=== PATIENT | male | born 1975 | race Caucasian/White ===

== ENCOUNTER 2017-03-26 18:59 | Emergency (ER) | payer SELFPAY ==
[2017-03-26 19:06] VITALS: BP 187/115; PULSE 75; RESP 18; TEMP 97.9; O2SAT 98
[2017-03-26 19:18] VITALS: BP 121/80; PULSE 70; RESP 18; TEMP 97.7; O2SAT 97
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
[2017-03-27] MEDS ORDERED: TETANUS/DIPHTHERIA TOXOID ADULT 0.5 ML VIAL IM ONE (01:15)
--- NOTE | 2017-03-27 02:08 | RADRPT ---
EXAM DATE/TIME: 03/27/2017 01:47 [facility] COMPARISON: CT FACIAL BONES W/O CONTRAST, March 27, 2017, 1:48. INDICATIONS : Fall, head pain RADIATION DOSE: 56.35 CTDIvol (mGy) MEDICAL HISTORY : None SURGICAL HISTORY : None. ENCOUNTER: Initial ACUITY: 1 day PAIN SCALE: 0/10 LOCATION: cranial TECHNIQUE: Multiple contiguous axial images were obtained of the head. Using automated exposure control and adj ustment of the mA and/or kV according to patient size, radiation dose was kept as low as reasonably a chievable to obtain optimal diagnostic quality images. DICOM format image data is available electro nically for review and comparison. FINDINGS: CEREBRUM: The ventricles are normal for age. No evidence of midline shift, mass lesion, hemorrhage or acute in farction. No extra-axial fluid collections are seen. POSTERIOR FOSSA: The cerebellum and brainstem are intact. The 4th ventricle is midline. The cerebellopontine angle i s unremarkable. EXTRACRANIAL: The visualized portion of the orbits is intact. SKULL: The calvaria is intact. No evidence of skull fracture. CONCLUSION: Normal examination. Magdy Ramirez MD on March 27, 2017 at 2:06 Board Certified Radiologist. This report was verified electronically.
--- NOTE | 2017-03-27 02:09 | RADRPT ---
EXAM DATE/TIME: 03/27/2017 01:48 [facility] COMPARISON: CT BRAIN W/O CONTRAST, March 27, 2017, 1:47. INDICATIONS : Fall . Abrasion to the nose . RADIATION DOSE: 14.59 CTDIvol (mGy) MEDICAL HISTORY : None SURGICAL HISTORY : None. ENCOUNTER: Initial ACUITY: 1 day PAIN SCORE: 0/10 LOCATION: facial TECHNIQUE: Volumetric scanning of the facial bones was performed. Using automated exposure control and adjustme nt of the mA and/or kV according to patient size, radiation dose was kept as low as reasonably achiev able to obtain optimal diagnostic quality images. DICOM format image data is available electronicClearView™ Audio y for review and comparison. FINDINGS: ORBITS: The orbital and infraorbital osseous structures are intact. The retroconal structures have a normal configuration. No radiopaque foreign bodies are seen. NASAL BONE: The nasal bone and maxillary spine are intact ZYGOMATIC ARCHES: Symmetric without evidence of fracture. SINUSES: The maxillary, ethmoid and frontal sinuses are intact. No air-fluid levels seen. NASAL CAVITY: The nasal septum is intact and midline. The lacrimal ducts are intact. SOFT TISSUES: No radiopaque foreign bodies seen. No soft-tissue swelling is seen. INTRACRANIAL: No intracranial air seen. CRIBIFORM PLATE: Grossly intact. CONCLUSION: No acute disease. Magdy Ramirez MD on March 27, 2017 at 2:07 Board Certified Radiologist. This report was verified electronically.
== END 2017-03-27 02:20 | disposition home or self-care (01) ==
LOC: NEDAMB 18:59 → NEPE 03-27 02:20
DX: S09.90XA Unspecified injury of head, initial encounter (principal); S00.31XA Abrasion of nose, initial encounter; S00.81XA Abrasion of other part of head, initial encounter; F10.929 Alcohol use, unspecified with intoxication, unspecified; Z23 Encounter for immunization; Z72.0 Tobacco use; W19.XXXA Unspecified fall, initial encounter
CPT/HCPCS: 70450; 70486; 90471; 90714

== ENCOUNTER 2017-05-07 09:49 | Emergency (ER) | payer SELFPAY ==
[~2017-05-07] VITALS: Ht 165.1 cm; Wt 61.5 kg
[2017-05-07 09:50] VITALS: BP 129/94; PULSE 82; RESP 18; TEMP 98.5; O2SAT 98
--- NOTE | 2017-05-07 10:14 | PD ---
HPI Chief Complaint: Abdominal Pain Time Seen by Provider: 10:04 Travel History International Travel<30 days: No Contact w/Intl Traveler<30days: No Traveled to known affect area: No History of Present Illness HPI Patient has a 41-year-old male with a history of alcoholism presents emergency department with epigastric abdominal pain since this morning. He states his last drink as last night. States he usually drinks 1/5 of alcohol every day. He states he did quit for a long time but then a close friend in so he picked up the bottle again. Endorses some nausea vomiting with some blood- tinged emesis. States that this visit only at the end of his episode of emesis. He states that after the episode of emesis he coughs up the phlegm of mucus that a buildup in his throat in that is when he notices the blood per. Also endorses some nonbloody nonbilious diarrhea, states the pain as epigastric , severe, context associated signs symptoms as above. PFSH Social History Alcohol Use: Yes Tobacco Use: Yes Substance Use: No Allergies-Medications (Allergen,Severity, Reaction): Coded Allergies: tramadol (Verified Allergy, Unknown, 03/27/17) Reported Meds & Prescriptions Reported Meds & Active Scripts Active Zofran (Ondansetron HCl) 4 Mg Tab 4 Mg PO Q6HR PRN Review of Systems Except as stated in HPI: all other systems reviewed are Neg Physical Exam Narrative GENERAL: Well-developed well-nourished, uncomfortable appearance nontoxic though. SKIN: Focused skin assessment warm/dry. HEAD: Atraumatic. Normocephalic. EYES: Pupils equal and round. No scleral icterus. No injection or drainage. ENT: No nasal bleeding or discharge. Mucous membranes pink and moist. NECK: Trachea midline. No JVD. CARDIOVASCULAR: Regular rate and rhythm. No murmur appreciated. RESPIRATORY: No accessory muscle use. Clear to auscultation. Breath sounds equal bilaterally. GASTROINTESTINAL: Abdomen soft, moderately tender in the epigastric area without any rebound or percussive tenderness. Nondistended. Hepatic and splenic margins not palpable. MUSCULOSKELETAL: No obvious deformities. No clubbing. No cyanosis. No edema. NEUROLOGICAL: Awake and alert. No obvious cranial nerve deficits. Motor grossly within normal limits. Normal speech. PSYCHIATRIC: Appropriate mood and affect; insight and judgment normal. Data Data Last Documented VS Vital Signs Date Time Temp Pulse Resp B/P (MAP) Pulse Ox O2 Delivery O2 Flow Rate FiO2 05/07/17 12:27 05/07/17 10:26 18 05/07/17 09:50 98.5 82 98 Room Air Orders Orders Complete Blood Count With Diff (05/07/17 10:05) Comprehensive Metabolic Panel (05/07/17 10:05) Lipase (05/07/17 10:05) Iv Access Insert/Monitor (05/07/17 10:05) Ecg Monitoring (05/07/17 10:05) Oximetry (05/07/17 10:05) Sodium Chloride 0.9% Flush (Ns Flush) (05/07/17 10:15) Electrocardiogram (05/07/17 10:05) Ketorolac Inj (Toradol Inj) (05/07/17 10:15) Chest, Single Ap (05/07/17 ) Ondansetron Inj (Zofran Inj) (05/07/17 10:15) Ed Discharge Order (05/07/17 12:23) Labs Laboratory Tests Test 05/07/17 10:19 White Blood Count 6.9 TH/MM3 Red Blood Count 4.40 MIL/MM3 Hemoglobin 16.2 GM/DL Hematocrit 45.4 % Mean Corpuscular Volume 103.1 FL Mean Corpuscular Hemoglobin 36.8 PG Mean Corpuscular Hemoglobin Concent 35.7 % Red Cell Distribution Width 14.6 % Platelet Count 221 TH/MM3 Mean Platelet Volume 9.5 FL Neutrophils (%) (Auto) 68.5 % Lymphocytes (%) (Auto) 25.4 % Monocytes (%) (Auto) 4.4 % Eosinophils (%) (Auto) 1.3 % Basophils (%) (Auto) 0.4 % Neutrophils # (Auto) 4.8 TH/MM3 Lymphocytes # (Auto) 1.8 TH/MM3 Monocytes # (Auto) 0.3 TH/MM3 Eosinophils # (Auto) 0.1 TH/MM3 Basophils # (Auto) 0.0 TH/MM3 CBC Comment DIFF FINAL Differential Comment Blood Urea Nitrogen 6 MG/DL Creatinine 0.93 MG/DL Random Glucose 100 MG/DL Total Protein 7.7 GM/DL Albumin 3.9 GM/DL Calcium Level 8.4 MG/DL Alkaline Phosphatase 119 U/L Aspartate Amino Transf (AST/SGOT) 162 U/L Alanine Aminotransferase (ALT/SGPT) 62 U/L Total Bilirubin 0.8 MG/DL Sodium Level 136 MEQ/L Potassium Level 4.8 MEQ/L Chloride Level 103 MEQ/L Carbon Dioxide Level 24.0 MEQ/L Anion Gap 9 MEQ/L Estimat Glomerular Filtration Rate 89 ML/MIN Lipase 426 U/L MDM Medical Decision Making Medical Screen Exam Complete: Yes Emergency Medical Condition: Yes Differential Diagnosis Pancreatitis, cholecystitis, alcoholic gastritis, alcoholism. Narrative Course Patient roomed in the emergency department, lipase only minimally elevated, given fluids pain medication and antiemetics, feeling better he has tolerated by mouth fluids in the emergency department, on revisit discussed need follow- up with primary care physician or the [facility] as well as [facility] for treatment of his alcoholism. Patient states he has been having shakes, examined him he has a course intention tremor but no baseline tremor, no delirium, no fever. Symptoms could represent a mild withdrawal but there is no indication for further treatment at this time. He is stable for discharge, discussed return to ED criteria. Diagnosis Primary Impression: Epigastric pain Additional Impression: Alcoholism Referrals: [facility]Other Pt SpecificInfo: Prescription(s) given Scripts Ondansetron (Zofran) 4 Mg Tab 4 MG PO Q6HR Y for NAUSEA OR VOMITING, #20 TAB 0 Refills Prov: Daquan Fountain MD 05/07/17 Disposition: 01 DISCHARGE HOME Condition: Stable Daquan Fountain MD May 07, 2017 10:14
[2017-05-07] MEDS ORDERED: SODIUM CHLORIDE 0.9% FLUSH 10 ML FLUSH IV FLUSH PRN (10:15)
[2017-05-07] MEDS ORDERED: ONDANSETRON HCL 4 MG/2 ML VIAL IV PUSH ONE (10:15)
[2017-05-07] MEDS ORDERED: KETOROLAC TROMETHAMINE 30 MG/ML (IVP) VIAL IV PUSH ONE (10:15)
[2017-05-07 10:42] LABS: AUTOMATED NEUTROPHIL # 4.8 TH/MM3 (1.8-7.7); BASOPHIL % 0.4 % (0.0-2.0); EOSINOPHIL # 0.1 TH/MM3 (0-0.4); EOSINOPHIL % 1.3 % (0.0-4.0); HEMATOCRIT 45.4 % (39.0-51.0); HEMOGLOBIN 16.2 GM/DL (13.0-17.0); LYMPH % 25.4 % (9.0-44.0); LYMPHOCYTE # 1.8 TH/MM3 (1.0-4.8); MEAN CELL VOLUME 103.1 FL (80.0-100.0); MEAN CORPUSCULAR HEMOGLOBIN 36.8 PG (27.0-34.0); MEAN CORPUSCULAR HGB CONC 35.7 % (32.0-36.0); MEAN PLATELET VOLUME 9.5 FL (7.0-11.0); MONO % 4.4 % (0.0-8.0); MONOCYTE # 0.3 TH/MM3 (0-0.9); NEUT % 68.5 % (16.0-70.0); PLATELET COUNT 221 TH/MM3 (150-450); RED CELL DISTRIBUTION WIDTH 14.6 % (11.6-17.2); WHITE BLOOD COUNT 6.9 TH/MM3 (4.0-11.0)
--- NOTE | 2017-05-07 10:48 | RADRPT ---
EXAM DATE/TIME: 05/07/2017 10:24 [facility] COMPARISON: No previous studies available for comparison. INDICATIONS : Dizziness and vomiting. MEDICAL HISTORY : None. SURGICAL HISTORY : None. ENCOUNTER: Initial ACUITY: 1 day PAIN SCORE: 4/10 LOCATION: Bilateral chest FINDINGS: A single view of the chest demonstrates the lungs to be symmetrically aerated without evidence of mas s, infiltrate or effusion. The cardiomediastinal contours are unremarkable. Osseous structures are intact. CONCLUSION: Normal examination. Daniel Burden MD on May 07, 2017 at 10:46 Board Certified Radiologist. This report was verified electronically.
[2017-05-07 10:55] LABS: ALBUMIN 3.9 GM/DL (3.4-5.0); AST (GOT) 162 U/L (15-37); BLOOD UREA NITROGEN 6 MG/DL (7-18); CALCIUM 8.4 MG/DL (8.5-10.1); CHLORIDE 103 MEQ/L (98-107); CREATININE 0.93 MG/DL (0.60-1.30); GLOMERULAR FILTRATION RATE 89 ML/MIN (>89); GLUCOSE,RANDOM 100 MG/DL (74-106); LIPASE 426 U/L (73-393); SODIUM (NA) 136 MEQ/L (136-145)
[2017-05-07 10:56] LABS: ALT (GPT) 62 U/L (12-78)
[2017-05-07 10:58] LABS: ALKALINE PHOSPHATASE 119 U/L (45-117); TOTAL BILIRUBIN ADULT 0.8 MG/DL (0.2-1.0); TOTAL PROTEIN 7.7 GM/DL (6.4-8.2)
[2017-05-07] MEDS ORDERED: ZOFR4TAB PO (12:29)
--- NOTE | 2017-05-07 21:28 | EKG ---
Date Performed: 05/07/2017 Time Performed: 10:57:30 PTAGE: 41 years EKG: SINUS BRADYCARDIA WITH SINUS ARRHYTHMIA INCOMPLETE RIGHT BUNDLE BRANCH BLOCK BORDERLINE ECG NO PREVIOUS TRACING DOCTOR: Basil Kessler Interpretating Date/Time 05/07/2017 21:27:26
== END 2017-05-07 12:39 | disposition home or self-care (01) ==
LOC: NEPD 09:49
DX: R10.13 Epigastric pain (principal); F10.20 Alcohol dependence, uncomplicated; Z72.0 Tobacco use
CPT/HCPCS: 71045; 80053; 83690; 85025; 93005; 96374; 96375; 99285; J1885; J2405

== ENCOUNTER 2017-08-05 13:05 | Emergency (ER) | payer SELFPAY ==
[~2017-08-05] VITALS: Ht 165.1 cm; Wt 60.0 kg
[~2017-08-05 13:05] MED LIST: ZOFR4TAB PO
[2017-08-05 13:09] VITALS: BP 147/106; PULSE 126; RESP 20; TEMP 98.8; O2SAT 96
[2017-08-05 13:55] VITALS: BP 139/88; PULSE 132; RESP 18; TEMP 98.3; O2SAT 96
[2017-08-05 14:04] LABS: AUTOMATED NEUTROPHIL # 4.5 TH/MM3 (1.8-7.7); BASOPHIL % 0.4 % (0.0-2.0); EOSINOPHIL # 0.1 TH/MM3 (0-0.4); EOSINOPHIL % 0.7 % (0.0-4.0); HEMATOCRIT 43.9 % (39.0-51.0); LYMPH % 36.6 % (9.0-44.0); LYMPHOCYTE # 2.9 TH/MM3 (1.0-4.8); MEAN CELL VOLUME 104.5 FL (80.0-100.0); MEAN CORPUSCULAR HEMOGLOBIN 35.8 PG (27.0-34.0); MEAN CORPUSCULAR HGB CONC 34.2 % (32.0-36.0); MEAN PLATELET VOLUME 8.2 FL (7.0-11.0); MONO % 6.4 % (0.0-8.0); MONOCYTE # 0.5 TH/MM3 (0-0.9); NEUT % 55.9 % (16.0-70.0); PLATELET COUNT 252 TH/MM3 (150-450); RED BLOOD COUNT 4.19 MIL/MM3 (4.50-5.90); RED CELL DISTRIBUTION WIDTH 16.1 % (11.6-17.2)
[2017-08-05 14:21] LABS: ALBUMIN 4.1 GM/DL (3.4-5.0); ALT (GPT) 64 U/L (12-78); AST (GOT) 163 U/L (15-37); BICARBONATE 23.8 MEQ/L (21.0-32.0); BLOOD UREA NITROGEN 6 MG/DL (7-18); CALCIUM 7.6 MG/DL (8.5-10.1); CHLORIDE 101 MEQ/L (98-107); GLOMERULAR FILTRATION RATE 82 ML/MIN (>89); GLUCOSE,RANDOM 241 MG/DL (74-106); SODIUM (NA) 139 MEQ/L (136-145)
--- NOTE | 2017-08-05 14:29 | PD ---
HPI Chief Complaint: Psychiatric Symptoms Time Seen by Provider: 14:14 Travel History International Travel<30 days: No Contact w/Intl Traveler<30days: No Traveled to known affect area: No History of Present Illness HPI Pt is a 42 year old male presenting to the ED voluntarily for psych eval. Pt reports feeling suicidal. He states he has felt this way for a while and reports a previous suicide attempt in 2004 by banging his head on the wall and passing out. Pt states "I want to kill myself". He reports daily ETOH abuse. 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 This is a daily ocurrance and he has also been homeless for the last 3 days, he won't elaborate why. He has no physical complaints. Symptom onset is unknown. Symptoms are worsened by ETOH. PFSH Past Medical History Depression: Yes Patient Takes Glucophage: No Medical other: Yes Musculoskeletal: Yes (Hx broken collarbone approx 4 yrs ago. ) Pancreatitis: Yes Seizures: Yes (Last seizure 2x days ago d/t ETOH withdrawal per pt. ) ?: Not Past Surgical History Surgical History: No Previous Surgery Social History Alcohol Use: Yes ("a lot" - Daily) Tobacco Use: Yes (states he quit yesterday 05/06/17) Substance Use: Yes ("edibles") Allergies-Medications (Allergen,Severity, Reaction): Coded Allergies: tramadol (Verified Allergy, Unknown, 03/27/17) Reported Meds & Prescriptions Reported Meds & Active Scripts Active Zofran (Ondansetron HCl) 4 Mg Tab 4 Mg PO Q6HR PRN Review of Systems Except as stated in HPI: all other systems reviewed are Neg Psychiatric: Positive: Depression, Suicidal Ideations, Substance Abuse Physical Exam Exam Limitations: Intoxication Narrative GENERAL: Well developed, well nourished, intoxicated appearing male. Tearful in no acute distress. SKIN: Warm and dry. HEAD: Atraumatic. Normocephalic. EYES: Pupils equal and round. No scleral icterus. No injection or drainage. ENT: No nasal bleeding or discharge. Mucous membranes pink and moist. NECK: Trachea midline. No JVD. CARDIOVASCULAR: Tachycardic RESPIRATORY: No accessory muscle use. Clear to auscultation. Breath sounds equal bilaterally. GASTROINTESTINAL: Abdomen soft, non-tender, nondistended. Hepatic and splenic margins not palpable. MUSCULOSKELETAL: Extremities without clubbing, cyanosis, or edema. No obvious deformities. NEUROLOGICAL: Awake and alert. No obvious cranial nerve deficits. Motor grossly within normal limits. Five out of 5 muscle strength in the arms and legs. Normal speech. PSYCHIATRIC: depressed mood and affect; insight and judgment impaired. Data Data Last Documented VS Orders Orders Complete Blood Count With Diff (08/05/17 13:44) Comprehensive Metabolic Panel (08/05/17 13:44) Thyroid Stimulating Hormone (08/05/17 13:44) Psych Screen (08/05/17 13:44) Drug Screen, Random Urine (08/05/17 13:44) Alcohol (Ethanol) (08/05/17 13:44) Salicylates (Aspirin) (08/05/17 13:44) Tylenol (Acetaminophen) (08/05/17 13:44) Lorazepam (Ativan) (08/05/17 14:30) Sodium Chlor 0.9% 1000 Ml Inj (Ns 1000 M (08/05/17 15:15) Sodium Chlor 0.9% 1000 Ml Inj (Ns 1000 M (08/05/17 15:15) Iv Access Insert/Monitor (08/05/17 15:06) Alcohol Withdrawal Asmt-Ciwa ONCE (08/05/17 18:45) Ondansetron Odt (Zofran Odt) (08/05/17 18:45) Acetaminophen (Tylenol) (08/05/17 18:45) Flumazenil Inj (Romazicon Inj) (08/05/17 18:45) Lorazepam (Ativan) (08/05/17 18:45) Lorazepam Inj (Ativan Inj) (08/05/17 18:45) Lorazepam (Ativan) (08/05/17 18:45) Lorazepam Inj (Ativan Inj) (08/05/17 18:45) Lorazepam Inj (Ativan Inj) (08/05/17 18:45) Lorazepam Inj (Ativan Inj) (08/05/17 18:45) Ed Discharge Order (08/06/17 07:57) Labs Laboratory Tests Test 08/05/17 11:25 08/05/17 13:38 Urine Opiates Screen NEG Urine Barbiturates Screen NEG Urine Amphetamines Screen NEG Urine Benzodiazepines Screen NEG Urine Cocaine Screen NEG Urine Cannabinoids Screen NEG White Blood Count 8.0 TH/MM3 Red Blood Count 4.19 MIL/MM3 Hemoglobin 15.0 GM/DL Hematocrit 43.9 % Mean Corpuscular Volume 104.5 FL Mean Corpuscular Hemoglobin 35.8 PG Mean Corpuscular Hemoglobin Concent 34.2 % Red Cell Distribution Width 16.1 % Platelet Count 252 TH/MM3 Mean Platelet Volume 8.2 FL Neutrophils (%) (Auto) 55.9 % Lymphocytes (%) (Auto) 36.6 % Monocytes (%) (Auto) 6.4 % Eosinophils (%) (Auto) 0.7 % Basophils (%) (Auto) 0.4 % Neutrophils # (Auto) 4.5 TH/MM3 Lymphocytes # (Auto) 2.9 TH/MM3 Monocytes # (Auto) 0.5 TH/MM3 Eosinophils # (Auto) 0.1 TH/MM3 Basophils # (Auto) 0.0 TH/MM3 CBC Comment DIFF FINAL Differential Comment Blood Urea Nitrogen 6 MG/DL Creatinine 1.00 MG/DL Random Glucose 241 MG/DL Total Protein 7.8 GM/DL Albumin 4.1 GM/DL Calcium Level 7.6 MG/DL Alkaline Phosphatase 117 U/L Aspartate Amino Transf (AST/SGOT) 163 U/L Alanine Aminotransferase (ALT/SGPT) 64 U/L Total Bilirubin 0.3 MG/DL Sodium Level 139 MEQ/L Potassium Level 3.7 MEQ/L Chloride Level 101 MEQ/L Carbon Dioxide Level 23.8 MEQ/L Anion Gap 14 MEQ/L Estimat Glomerular Filtration Rate 82 ML/MIN Thyroid Stimulating Hormone 3rd Gen 1.710 uIU/ML Salicylates Level 2.8 MG/DL Acetaminophen Level LESS THAN 2.0 MCG/ML Ethyl Alcohol Level 457 MG/DL MDM Medical Decision Making Medical Screen Exam Complete: Yes Emergency Medical Condition: Yes Interpretation(s) Laboratory Tests Test 08/05/17 11:25 08/05/17 13:38 Urine Opiates Screen NEG Urine Barbiturates Screen NEG Urine Amphetamines Screen NEG Urine Benzodiazepines Screen NEG Urine Cocaine Screen NEG Urine Cannabinoids Screen NEG White Blood Count 8.0 TH/MM3 Red Blood Count 4.19 MIL/MM3 Hemoglobin 15.0 GM/DL Hematocrit 43.9 % Mean Corpuscular Volume 104.5 FL Mean Corpuscular Hemoglobin 35.8 PG Mean Corpuscular Hemoglobin Concent 34.2 % Red Cell Distribution Width 16.1 % Platelet Count 252 TH/MM3 Mean Platelet Volume 8.2 FL Neutrophils (%) (Auto) 55.9 % Lymphocytes (%) (Auto) 36.6 % Monocytes (%) (Auto) 6.4 % Eosinophils (%) (Auto) 0.7 % Basophils (%) (Auto) 0.4 % Neutrophils # (Auto) 4.5 TH/MM3 Lymphocytes # (Auto) 2.9 TH/MM3 Monocytes # (Auto) 0.5 TH/MM3 Eosinophils # (Auto) 0.1 TH/MM3 Basophils # (Auto) 0.0 TH/MM3 CBC Comment DIFF FINAL Differential Comment Blood Urea Nitrogen 6 MG/DL Creatinine 1.00 MG/DL Random Glucose 241 MG/DL Total Protein 7.8 GM/DL Albumin 4.1 GM/DL Calcium Level 7.6 MG/DL Alkaline Phosphatase 117 U/L Aspartate Amino Transf (AST/SGOT) 163 U/L Alanine Aminotransferase (ALT/SGPT) 64 U/L Total Bilirubin 0.3 MG/DL Sodium Level 139 MEQ/L Potassium Level 3.7 MEQ/L Chloride Level 101 MEQ/L Carbon Dioxide Level 23.8 MEQ/L Anion Gap 14 MEQ/L Estimat Glomerular Filtration Rate 82 ML/MIN Thyroid Stimulating Hormone 3rd Gen 1.710 uIU/ML Salicylates Level 2.8 MG/DL Acetaminophen Level LESS THAN 2.0 MCG/ML Ethyl Alcohol Level 457 MG/DL Vital Signs Date Time Temp Pulse Resp B/P (MAP) Pulse Ox O2 Delivery O2 Flow Rate FiO2 08/05/17 13:55 98.3 132 18 139/88 (105) 96 Room Air 08/05/17 13:09 98.8 126 20 147/106 (120) 96 Differential Diagnosis Mood disorder vs substance abuse vs metabolic abnormality. Narrative Course Pt is a 42 year old male presenting voluntarily to the ED for psych eval. He is tachycardic on arrival, likely due to ETOH. He is otherwise well appearing. Psych screen ordered. Oral fluids encouraged. Labs reviewed, no acute findings identified. Blood alcohol level is 457. Patient was moved from J pod to delta 46, he will be given IV fluids. Patient will be evaluated by psych screener after he is sober. Patient was reassessed, he is resting comfortably. Patient is medically cleared at this time. Diagnosis Primary Impression: Medical clearance for psychiatric admission Additional Impression: Alcohol intoxication Qualified Codes: F10.920 - Alcohol use, unspecified with intoxication, uncomplicated Condition: Stable Shelby Medrano [facility] Aug 05, 2017 14:29
[2017-08-05] MEDS ORDERED: LORazepam 0.5 MG TAB PO ONE (14:30)
[2017-08-05 14:31] LABS: ALKALINE PHOSPHATASE 117 U/L (45-117); TOTAL BILIRUBIN ADULT 0.3 MG/DL (0.2-1.0); TOTAL PROTEIN 7.8 GM/DL (6.4-8.2)
[2017-08-05 14:38] LABS: ACETAMINOPHEN LESS THAN 2.0 MCG/ML (10.0-30.0)
[2017-08-05] MEDS ORDERED: SODIUM CHLOR 0.9% 1000 ML INJ 1,000 ML IV ONE ×2 (15:15)
[2017-08-05 18:08] VITALS: BP 126/82; PULSE 106; RESP 18; O2SAT 98
[2017-08-05] MEDS ORDERED: LORazepam 1 MG TAB PO PRN (18:45)
[2017-08-05] MEDS ORDERED: ACETAMINOPHEN 325 MG TAB PO PRN (18:45)
[2017-08-05] MEDS ORDERED: LORazepam 2 MG/ML VIAL IV PUSH PRN ×4 (18:45)
[2017-08-05] MEDS ORDERED: FLUMAZENIL 0.5 MG/5 ML VIAL IV PUSH PRN (18:45)
[2017-08-05] MEDS: ONDANSETRON ODT 4 MG TAB PO PRN (19:53)
[2017-08-05] MEDS: LORazepam 2 MG TAB PO PRN (19:54)
[2017-08-05 22:00] VITALS: BP 95/54; PULSE 91; RESP 18
[2017-08-06 03:18] VITALS: BP 107/81; PULSE 92; RESP 16; TEMP 98.2; O2SAT 96
[2017-08-06] MEDS: ONDANSETRON ODT 4 MG TAB PO PRN (04:15)
[2017-08-06 06:05] VITALS: BP 114/65; PULSE 72; RESP 14; TEMP 97.7; O2SAT 95
[2017-08-06 07:48] VITALS: BP 119/82; PULSE 74; RESP 18; TEMP 97.1; O2SAT 96
[2017-08-06] MEDS: LORazepam 2 MG TAB PO PRN (07:48)
--- NOTE | 2017-08-06 07:57 | PD ---
Physical Exam Time Seen by Provider: 07:[address] Alfaro has evaluated the patient and cleared the patient for discharge. Data Data Last Documented VS Vital Signs Date Time Temp Pulse Resp B/P (MAP) Pulse Ox O2 Delivery O2 Flow Rate FiO2 08/06/17 07:48 97.1 74 18 119/82 (94) 96 Room Air Orders Orders Complete Blood Count With Diff (08/05/17 13:44) Comprehensive Metabolic Panel (08/05/17 13:44) Thyroid Stimulating Hormone (08/05/17 13:44) Psych Screen (08/05/17 13:44) Drug Screen, Random Urine (08/05/17 13:44) Alcohol (Ethanol) (08/05/17 13:44) Salicylates (Aspirin) (08/05/17 13:44) Tylenol (Acetaminophen) (08/05/17 13:44) Lorazepam (Ativan) (08/05/17 14:30) Sodium Chlor 0.9% 1000 Ml Inj (Ns 1000 M (08/05/17 15:15) Sodium Chlor 0.9% 1000 Ml Inj (Ns 1000 M (08/05/17 15:15) Iv Access Insert/Monitor (08/05/17 15:06) Alcohol Withdrawal Asmt-Ciwa ONCE (08/05/17 18:45) Ondansetron Odt (Zofran Odt) (08/05/17 18:45) Acetaminophen (Tylenol) (08/05/17 18:45) Flumazenil Inj (Romazicon Inj) (08/05/17 18:45) Lorazepam (Ativan) (08/05/17 18:45) Lorazepam Inj (Ativan Inj) (08/05/17 18:45) Lorazepam (Ativan) (08/05/17 18:45) Lorazepam Inj (Ativan Inj) (08/05/17 18:45) Lorazepam Inj (Ativan Inj) (08/05/17 18:45) Lorazepam Inj (Ativan Inj) (08/05/17 18:45) Diet Regular Basic (08/06/17 Breakfast) Labs Laboratory Tests Test 08/05/17 11:25 08/05/17 13:38 Urine Opiates Screen NEG Urine Barbiturates Screen NEG Urine Amphetamines Screen NEG Urine Benzodiazepines Screen NEG Urine Cocaine Screen NEG Urine Cannabinoids Screen NEG White Blood Count 8.0 TH/MM3 Red Blood Count 4.19 MIL/MM3 Hemoglobin 15.0 GM/DL Hematocrit 43.9 % Mean Corpuscular Volume 104.5 FL Mean Corpuscular Hemoglobin 35.8 PG Mean Corpuscular Hemoglobin Concent 34.2 % Red Cell Distribution Width 16.1 % Platelet Count 252 TH/MM3 Mean Platelet Volume 8.2 FL Neutrophils (%) (Auto) 55.9 % Lymphocytes (%) (Auto) 36.6 % Monocytes (%) (Auto) 6.4 % Eosinophils (%) (Auto) 0.7 % Basophils (%) (Auto) 0.4 % Neutrophils # (Auto) 4.5 TH/MM3 Lymphocytes # (Auto) 2.9 TH/MM3 Monocytes # (Auto) 0.5 TH/MM3 Eosinophils # (Auto) 0.1 TH/MM3 Basophils # (Auto) 0.0 TH/MM3 CBC Comment DIFF FINAL Differential Comment Blood Urea Nitrogen 6 MG/DL Creatinine 1.00 MG/DL Random Glucose 241 MG/DL Total Protein 7.8 GM/DL Albumin 4.1 GM/DL Calcium Level 7.6 MG/DL Alkaline Phosphatase 117 U/L Aspartate Amino Transf (AST/SGOT) 163 U/L Alanine Aminotransferase (ALT/SGPT) 64 U/L Total Bilirubin 0.3 MG/DL Sodium Level 139 MEQ/L Potassium Level 3.7 MEQ/L Chloride Level 101 MEQ/L Carbon Dioxide Level 23.8 MEQ/L Anion Gap 14 MEQ/L Estimat Glomerular Filtration Rate 82 ML/MIN Thyroid Stimulating Hormone 3rd Gen 1.710 uIU/ML Salicylates Level 2.8 MG/DL Acetaminophen Level LESS THAN 2.0 MCG/ML Ethyl Alcohol Level 457 MG/DL [facility] Supervised Visit with GISELLA: No Narrative Course Dr. Alfaro has evaluated the patient and cleared the patient for discharge. Patient contracts safety. Denies suicidal or homicidal ideations. Patient will be provided community resource packet to [facility] for follow-up. Has friends and family for support. Patient was medically cleared by alternate provider prior to psych screening. Patient has been evaluated by psychiatry and and is now cleared for discharge. Diagnosis Primary Impression: Alcohol intoxication Qualified Codes: F10.920 - Alcohol use, unspecified with intoxication, uncomplicated Referrals: [facility] (Out patient) [facility] Primary Care Physician Psychiatrist Tammy PAIGE Behavior[facility] Patient Instructions: Abuse of Alcohol (ED), Alcohol Dependence (ED), Alcohol Intoxication (ED), General Instructions Additional Instruction: Contract safety to your self and others Follow-up with psychiatry Follow-up with primary care provider Follow-up with Rayo Ivey Return to the emergency department immediately with worsening of symptoms Med/Other Pt SpecificInfo: No Change to Meds, No Meds Exist/No RX given Disposition: 01 DISCHARGE HOME Condition: Stable Meagan Fuller [facility] Aug 06, 2017 07:57
--- NOTE | 2017-08-06 10:36 | PD.PSY.CON ---
Provisional Diagnosis Admission Date [place]. Alcohol use disorder History of Present Illness Service Psychiatry Consult Requested By ER Reason for Consult Suicidal ideation Primary Care Physician No Primary Care Physician HPI Patient was seen this morning at 8 AM. The patient is a 42 year-old [place] man, single, homeless, with psychiatric history of alcohol use disorder, no previous psychiatric hospitalizations, 1 previous suicide attempts, no significant medical history, who presented to the ED voluntarily for psych eval. Pt reports feeling suicidal in the context of alcohol intoxication. BAL was initially 457. Pt states "I want to kill myself" . He reports daily ETOH abuse. He drank 1/5th of vodka [employer] in the ED today. This is a daily ocurrance and he has also been homeless for the last 3 days, he won't elaborate why. He has no physical complaints. Symptom onset is unknown. Symptoms are worsened by ETOH. On psychiatric evaluation today the patient reports feeling better, very shaky, withdrawing of alcohol. Patient denies ever saying that he wanted to kill himself, he says that he came to the ER basically to be detox of alcohol. Patient denies suicidal and was ideation, he denies visual and auditory hallucinations. The patient is committed to be transferred to [facility] to start detox. Review of Systems Endocrine: DENIES: Heat/cold intolerance, Polydipsia, Polyuria, Polyphagia Eyes: DENIES: Blurred vision, Diplopia, Eye inflammation, Eye pain, Vision loss , Photosensitivity, Double Vision Ears, nose, mouth, throat: DENIES: Tinnitus, Hearing loss, Vertigo, Nasal discharge, Oral lesions, Throat pain, Hoarseness, Ear Pain, Running Nose, Epistaxis, Sinus Pain, Toothache, Odynophagia Respiratory: DENIES: Apneas, Cough, Snoring, Wheezing, Hemoptysis, Sputum production, Shortness of breath Cardiovascular: DENIES: Chest pain, Palpitations, Syncope, Dyspnea on Exertion , PND, Lower Extremity Edema, Orthopnea, Claudication Gastrointestinal: DENIES: Abdominal pain, Black stools, Bloody stools, Constipation, Diarrhea, Nausea, Vomiting, Difficulty Swallowing, Anorexia Genitourinary: DENIES: Sexual dysfunction, Urinary frequency, Urinary incontinence, Urgency, Hematuria, Dysuria, Nocturia, Penile Discharge, Testicular Pain, Testicular Swelling Musculoskeletal: DENIES: Joint pain, Muscle aches, Stiffness, Joint Swelling, Back pain, Neck pain Integumentary: DENIES: Abnormal pigmentation, Nail changes, Pruritus, Rash Hematologic/lymphatic: DENIES: Bruising, Lymphadenopathy Immunologic/allergic: DENIES: Eczema, Urticaria Neurologic: COMPLAINS OF: Tremor, DENIES: Abnormal gait, Headache, Localized weakness, Paresthesias, Seizures, Speech Problems, Poor Balance Psychiatric: DENIES: Anxiety, Confusion, Mood changes, Depression, Hallucinations, Agitation, Suicidal Ideation, Homicidal Ideation, Delusions Past Family Social History Coded Allergies: tramadol (Verified Allergy, Unknown, 03/27/17) Active Scripts Ondansetron (Zofran) 4 Mg Tab, 4 MG PO Q6HR Y for NAUSEA OR VOMITING, #20 TAB 0 Refills Prov:Daquan Fountain MD 05/07/17 Physical Exam Vital Signs Vital Signs Date Time Temp Pulse Resp B/P (MAP) Pulse Ox O2 Delivery O2 Flow Rate FiO2 08/06/17 08:34 08/06/17 07:48 97.1 74 18 96 Room Air Lab Results Test 08/05/17 11:25 08/05/17 13:38 Urine Opiates Screen NEG Urine Barbiturates Screen NEG Urine Amphetamines Screen NEG Urine Benzodiazepines Screen NEG Urine Cocaine Screen NEG Urine Cannabinoids Screen NEG White Blood Count 8.0 TH/MM3 Red Blood Count 4.19 MIL/MM3 Hemoglobin 15.0 GM/DL Hematocrit 43.9 % Mean Corpuscular Volume 104.5 FL Mean Corpuscular Hemoglobin 35.8 PG Mean Corpuscular Hemoglobin Concent 34.2 % Red Cell Distribution Width 16.1 % Platelet Count 252 TH/MM3 Mean Platelet Volume 8.2 FL Neutrophils (%) (Auto) 55.9 % Lymphocytes (%) (Auto) 36.6 % Monocytes (%) (Auto) 6.4 % Eosinophils (%) (Auto) 0.7 % Basophils (%) (Auto) 0.4 % Neutrophils # (Auto) 4.5 TH/MM3 Lymphocytes # (Auto) 2.9 TH/MM3 Monocytes # (Auto) 0.5 TH/MM3 Eosinophils # (Auto) 0.1 TH/MM3 Basophils # (Auto) 0.0 TH/MM3 CBC Comment DIFF FINAL Differential Comment Blood Urea Nitrogen 6 MG/DL Creatinine 1.00 MG/DL Random Glucose 241 MG/DL Total Protein 7.8 GM/DL Albumin 4.1 GM/DL Calcium Level 7.6 MG/DL Alkaline Phosphatase 117 U/L Aspartate Amino Transf (AST/SGOT) 163 U/L Alanine Aminotransferase (ALT/SGPT) 64 U/L Total Bilirubin 0.3 MG/DL Sodium Level 139 MEQ/L Potassium Level 3.7 MEQ/L Chloride Level 101 MEQ/L Carbon Dioxide Level 23.8 MEQ/L Anion Gap 14 MEQ/L Estimat Glomerular Filtration Rate 82 ML/MIN Thyroid Stimulating Hormone 3rd Gen 1.710 uIU/ML Salicylates Level 2.8 MG/DL Acetaminophen Level LESS THAN 2.0 MCG/ML Ethyl Alcohol Level 457 MG/DL Mental Status Examination Appearance: Appropriate Consciousness: Alert Orientation: x4 Motor Activity: Normal gait Speech: Unremarkable Language: Adequate Fund of Knowledge: Adequate Attention and Concentration: Adequate Memory: Unremarkable Mood: Appropriate Affect: Appropriate Thought Process & Associations: Intact Thought Content: Appropriate Hallucination Type: None Delusion Type: None Suicidal Ideation: No Suicidal Plan: No Suicidal Intention: No Homicidal Ideation: No Homicidal Plan: No Homicidal Intention: No Insight: Adequate Judgment: Adequate Assessment & Plan Problem List: (1) Alcohol use disorder ICD Codes: F10.99 - Alcohol use, unspecified with unspecified alcohol-induced disorder Assessment & Plan: Patient does not meet criteria for involuntary psychiatric admission. Patient is now clinically sober. He denies suicidal enemas ideation , he denies visual and auditory hallucinations. Patient is motivated to go to detox. Currently shaky, withdrawing. Will provide Ativan 2 mg p.o. Will be transferred to [facility]. Assessment & Plan Estimated LOS: Nasir Aguiar MD Aug 06, 2017 10:36
== END 2017-08-06 08:43 | disposition home or self-care (01) ==
LOC: NEPJ 13:05
DX: F10.129 Alcohol abuse with intoxication, unspecified (principal); Y90.8 Blood alcohol level of 240 mg/100 ml or more
CPT/HCPCS: 80053; 80307; 84443; 85025; 96374; 99284; J2060; J7030